=== PATIENT | male | born 2000 | race Caucasian/White ===

== ENCOUNTER 2024-01-27 07:42 | Outpatient (CLI) | payer OTHER, SELFPAY ==
--- NOTE | ~2024-01-27 | MR_ITS ---
EXAMINATION: MR ankle RT wo con DATE: 01/27/2024 08:21 INDICATION: Right ankle pain TECHNIQUE: Magnetic resonance imaging (MRI) of the right ankle was performed without intravenous cont rast. Sequences included sagittal, coronal, and axial proton-density weighted fast spin echo without and with fat saturation. COMPARISON: None. FINDINGS: Medial ankle ligaments: There is thickening of the superficial deltoid ligament without surrounding edema and tiny heterotopi c ossicles along the deep deltoid ligament consistent with sequela of chronic medial ankle sprain. Th e remaining ligament complex is normal.. Lateral ankle ligaments: The anterior and posterior inferior tibiofibular ligaments are normal. The calcaneofibular and marble chip terrazzo worker ior talofibular ligaments are normal. Additional mild thickening and small heterotopic ossicles along the anterior talofibular ligament without surrounding edema also consistent with sequela of chronic sprain. Tendons: Tiny enthesophyte at the calcaneal insertion of the otherwise normal Achilles tendon. Small amount of fluid consistent with mild tenosynovitis along the otherwise normal peroneus longus and brevis tendo ns. The tibialis anterior and extensor hallucis longus and extensor digitorum longus tendons are norm al. The tibialis posterior, flexor digitorum longus and flexor hallucis longus tendons are normal. Plantar fascia: Plantar aponeurosis is normal. Bones/other: Chronic osteochondral lesion at the lateral aspect of the talar dome with subarticular collapse with flattening of the articular surface. The overlying articular cartilage appears grossly intact but wit h increased signal. There are small marginal osteophytes along the anterior aspect of the tibial plaf ond and talar dome. There is nonspecific edema-like signal change both from the osteochondral lesion as well as more anteriorly at the dorsal aspect of the head and neck the talus. Aside from the collap sed osteochondral lesion there is no fracture. No pathologic marrow replacing process. Fluid: Physiologic amount fluid in the joint space with synovitis at the anterior recess of the ankle joint without joint effusion. IMPRESSION: 1. 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 2. Scarring consistent with chronic sprains of the deltoid ligament and anterior talofibular ligament . 3. Mild peroneal tenosynovitis along the otherwise normal-appearing peroneal tendons. Reviewed, dictated and finalized at location B. IMPRESSION: 1. Mild tibiotalar osteoarthritis with collapsed osteochondral lesion at the me dial aspect of the talar dome. 2. Scarring consistent with chronic sprains of the deltoid ligament and anterio r talofibular ligament. 3. Mild peroneal tenosynovitis along the otherwise normal-appearing peroneal te ndons.
== END 2024-01-27 07:43 ==
LOC: MICIMG 07:45
PROVIDERS: PCP Podiatrist Foot & Ankle Surgery; Visit Provider Podiatrist Foot & Ankle Surgery
DX: S93.401S Sprain of unspecified ligament of right ankle, sequela (principal); X58.XXXD Exposure to other specified factors, subsequent encounter
CPT/HCPCS: 73721